=== PATIENT | male | born 1985 | race Caucasian/White ===

== ENCOUNTER 2018-07-05 10:49 | Emergency (ER) | payer OTHER ==
[~2018-07-05] VITALS: Ht 172.7 cm; Wt 71.2 kg
[2018-07-05] MEDS ORDERED: ACET160S5 PO (10:56)
[2018-07-05] MEDS ORDERED: NS 1,000 ML IV ONE (12:15)
[2018-07-05] MEDS ORDERED: KETOROLAC 30 MG/ML VIAL (J1885) IV ONE (12:15)
[2018-07-05 12:24] LABS: BASO # 0.1 10^3/uL (0.0-0.2); BASO % 0.4 % (0.0-1.0); EOS # 0.2 10^3/uL (0.0-0.50); EOS % 1.2 % (0.0-3.0); HEMATOCRIT 45.4 % (42.0-52.0); LYMPH # 1.7 10^3/uL (1.5-4.5); LYMPH % 11.5 % (24.0-44.0); MEAN CORPUSCULAR HEMOGLOBIN 30.2 pg (27.0-33.0); MEAN CORPUSCULAR VOLUME 91.5 fl (80.0-96.0); MONO # 0.8 10^3/uL (0.0-0.8); MONO % 5.2 % (0.0-5.0); NEUTROPHILS % 81.4 % (36.0-66.0); PLATELET COUNT, AUTOMATED 219 10^3/uL (150-450); RED BLOOD COUNT 4.96 10^6/uL (4.30-6.10); WHITE BLOOD COUNT 14.7 10^3/uL (4.0-10.0)
--- NOTE | 2018-07-05 12:49 | REP ---
CT ABDOMEN/PELVIS WITHOUT CONTRAST: CT abdomen/pelvis performed without oral or IV contrast. Sagittal and coronal reconstruction images are performed. Linear opacities in the visualized lung bases likely represent fibroatelectatic change. There is a nonspecific 5 mm nodule in the left lower lobe on image 10, of doubtful clinical significance. Recommend followup CT in 1 year only if the patient is at high risk for cancer. Liver, spleen, adrenals, pancreas are unremarkable. There is a tiny 2 mm calculus in the lower pole of the right kidney. No other renal or ureteral or bladder calculus is seen. There is no hydroureteronephrosis. There is a cyst in the upper pole of the left kidney which measures 1.8 cm in diameter. There is no abdominal aortic aneurysm. There is no adenopathy. There is no free air or free fluid. There is no bowel wall thickening. There is no evidence of appendicitis. No pelvic mass is seen. IMPRESSION: No evidence of appendicitis. 2 mm calculus lower pole of right kidney without ureteral calculus bilaterally or evidence of hydroureteronephrosis. Left renal cyst. No free air or free fluid. There is a 5 mm nodular opacity in the left lung base, which is of doubtful clinical significance. Recommend followup CT in 1 year if the patient is at high risk for cancer. Electronically Signed by Jasvir Ross MD 07/07/2018 11:35 A
[2018-07-05 13:01] LABS: ALBUMIN 3.9 GM/DL (3.2-5.2); ALT/SGPT 17 U/L (12-78); BILIRUBIN,DIRECT 0.1 MG/DL (0.0-0.2); BILIRUBIN,TOTAL 0.5 MG/DL (0.2-1.0); BLOOD UREA NITROGEN 9 MG/DL (7-18); CALCIUM LEVEL 8.4 MG/DL (8.5-10.1); CARBON DIOXIDE LEVEL 29 MEQ/L (21-32); CHLORIDE LEVEL 109 MEQ/L (98-107); GLOMERULAR FILTRATION RATE > 60.0 (>60); GLUCOSE, FASTING 79 MG/DL (70-100); POTASSIUM SERUM 4.6 MEQ/L (3.5-5.1); SODIUM LEVEL 140 MEQ/L (136-145); TOTAL PROTEIN 7.1 GM/DL (6.4-8.2)
[2018-07-05] MEDS ORDERED: ROBA500T PO (13:21)
[2018-07-05] MEDS ORDERED: IBUP-1022 PO (13:21)
[2018-07-05 13:33] VITALS: BP 119/76
--- NOTE | 2018-07-07 12:10 | ED PDOC ---
Post-Departure Follow-Up certified letter sent to pt re formal read of ct abd/p - needs fu of pulmonary n odule. find out who pcp is and fax. refer to [facility] if none and fax Lizbet Chakraborty MD Jul 07, 2018 12:10
== END 2018-07-05 13:36 | disposition home or self-care (01) ==
LOC: M ED 10:49
DX: M54.9 Dorsalgia, unspecified (principal); N20.0 Calculus of kidney; N28.1 Cyst of kidney, acquired; R91.1 Solitary pulmonary nodule; Z87.442 Personal history of urinary calculi; Z72.0 Tobacco use; Z88.5 Allergy status to narcotic agent; Z88.6 Allergy status to analgesic agent
CPT/HCPCS: 74176; 80048; 80076; 81001; 85025; 87086; 96361; 96374; 99284; J1885

== ENCOUNTER → 2022-03-18 | Outpatient (REF) ==
[~2022-03-18] MED LIST: ACET-1439 PO; IBUP-1022 PO; ROBA500T PO
== END ==
LOC: M PLAIMG 12:58
PROVIDERS: ATTEND Internal Medicine
DX: Z11.52 Encounter for screening for COVID-19 (principal)